=== PATIENT | female | born 1950 | race American Indian/Alaskan Native ===

== ENCOUNTER 2017-05-14 05:38 | Emergency (ER) | payer BC, MEDICARE ==
[2017-05-14 05:39] VITALS: BMI 28.2
[2017-05-14] MEDS ORDERED: Oxycodone/Acetaminophen 5/325 mg Tab PO STA (06:26)
--- NOTE | 2017-05-14 06:32 | C.PDOC ---
Time Seen by Provider: 05/14/17 06:20 Chief Complaint (Nursing): Upper Extremity Problem/Injury Past Medical History Vital Signs: Last Vital Signs Temp 97.7 F 05/14/17 05:47 Pulse 85 05/14/17 05:47 Resp 14 05/14/17 05:47 BP 152/89 H 05/14/17 05:47 Pulse Ox 96 05/14/17 05:47 - Medical History PMH: Anemia, HTN, Hypercholesterolemia, Chronic Kidney Disease, Seizures ( TRIGGERED BY LOSS OF BLOOD PER PT.) Denies: Depression Surgical History: Denies: Pacemaker - [facility] Procedures PERFORMANCE OF URINARY FILTRATION, SINGLE (05/14/16) Family History: States: Unknown Family Hx - Social History Hx Tobacco Use: No Hx Alcohol Use: No Hx Substance Use: No - Immunization History Hx Tetanus Toxoid Vaccination: Yes Hx Influenza Vaccination: No Hx Pneumococcal Vaccination: No ED Course And Treatment O2 Sat by Pulse Oximetry: 96
[2017-05-14] MEDS ORDERED: Oxycodone/Acetaminophen 5/325 mg Tab ONE (06:34)
--- NOTE | 2017-05-14 06:35 | C.PDOC ---
History Of Present Illness 66 year old female presents to the ED with complaints of left arm pain beginning yesterday morning at approximately 9:30am following dialysis. She states she thought the pain was due to the band around her fistula being too tight but the pain continues despite removing bandage. Patient denies any direct injury, fever, or taking any medications for the pain. Time Seen by Provider: 05/14/17 06:20 Chief Complaint (Nursing): Upper Extremity Problem/Injury History Per: Patient History/Exam Limitations: no limitations Onset/Duration Of Symptoms: Days (since yesterday 9:30am ) Current Symptoms Are (Timing): Still Present Quality: "Pain" Recent travel outside of the [place]: No Past Medical History Reviewed: Historical Data, Nursing Documentation, Vital Signs Vital Signs: Last Vital Signs Temp 97.7 F 05/14/17 05:47 Pulse 85 05/14/17 05:47 Resp 14 05/14/17 05:47 BP 152/89 H 05/14/17 05:47 Pulse Ox 96 05/14/17 07:17 - Medical History PMH: Anemia, HTN, Hypercholesterolemia, Chronic Kidney Disease, Seizures ( TRIGGERED BY LOSS OF BLOOD PER PT.) Surgical History: Denies: Pacemaker - [facility] Procedures PERFORMANCE OF URINARY FILTRATION, SINGLE (05/14/16) Family History: States: Unknown Family Hx - Social History Hx Tobacco Use: No Hx Alcohol Use: No Hx Substance Use: No - Immunization History Hx Tetanus Toxoid Vaccination: Yes Hx Influenza Vaccination: No Hx Pneumococcal Vaccination: No Review Of Systems Constitutional: Negative for: Fever, Chills, Sweats Cardiovascular: Negative for: Chest Pain, Palpitations Respiratory: Negative for: Cough, Shortness of Breath Gastrointestinal: Negative for: Nausea, Vomiting, Abdominal Pain, Diarrhea Musculoskeletal: Positive for: Shoulder Pain (left shoulder pain ), Arm Pain ( left arm pain) Neurological: Negative for: Headache Physical Exam - Physical Exam Skin: Other Additional Physical Exam Comments: Constitutional: uncomfortable. WDWN. Head: Normocephalic. Atraumatic. Neck: Supple. Cardiovascular: Regular rate and rhythm. Chest: No tenderness. Back: No CVA and no mid-line tenderness. Musculoskeletal: Decreased ROM to the left shoulder. Tenderness to the left lateral arm in bicepital region and superior shoulder area. . Skin: No rash. Fistula present to the left medial aspect of the arm with positive thrill. Neurologic: Alert, no focal deficit. ED Course And Treatment O2 Sat by Pulse Oximetry: 96 (room air) Disposition - Disposition Disposition Time: 07:18 Condition: STABLE - Clinical Impression Clinical Impression: Left shoulder pain - Scribe Statement The provider has reviewed the documentation as recorded by the Scribe Rachel Damon All medical record entries made by the Scribe were at my direction and personally dictated by me. I have reviewed the chart and agree that the record accurately reflects my personal performance of the history, physical exam, medical decision making, and the department course for this patient. I have also personally directed, reviewed, and agree with the discharge instructions and disposition. Physician Patient Turnover Patient Signed Over To: Baylee Banks Handoff Comments: follow up shoulder xray and doppler. re-eval pt and dispo accordingly
[2017-05-14 07:32] VITALS: RESP 18
--- NOTE | 2017-05-14 08:23 | RAD ---
PROCEDURE: Radiographs of the Left Shoulder HISTORY: pain no hx trauma COMPARISON: No prior. FINDINGS: BONES: Hypertrophic changes present No fracture. No dislocation JOINTS: . Glenohumeral and acromioclavicular joints moderate osteoarthritis. SOFT TISSUES: Normal. OTHER FINDINGS: None. IMPRESSION: Moderate arthrosis is above
[2017-05-14 09:24] VITALS: BP 135/78; PULSE 64; TEMP 97.5; O2SAT 97
--- NOTE | 2017-05-15 20:44 | VASCLAB ---
PROCEDURE: Left Upper Extremity Venous Duplex Exam HISTORY: left fistula, pain x 1 day PRIORS: None. TECHNIQUE: Left upper extremity, internal jugular, subclavian, axillary, brachial, ulnar, radial, basilic and upper cephalic veins were evaluated. Flow was assessed with color Doppler, compressibility, assessment of phasic flow and augmentation response. Report prepared by THERESA Aguilera, RVT FINDINGS: LEFT: 1. Internal Jugular: 1.1. Compressibility - Fully compressible: Thrombus - None : Flow - Phasic: Augmentation -Normal: Reflux - None. 2. Subclavian: 2.1. Compressibility - Fully compressible: Thrombus - None : Flow - Phasic: Augmentation -Normal: Reflux - None. 3. Axillary: 3.1. Compressibility - Fully compressible: Thrombus - None : Flow - Phasic: Augmentation -Normal: Reflux - None. 4. Brachial: 4.1. Compressibility - Fully compressible: Thrombus - None: Flow - Phasic: Augmentation -Normal: Reflux - None. 5. Ulnar: 5.1. Compressibility - Fully compressible: Thrombus - None: Not optimally obtained. 6. Radial: 6.1. Compressibility - Fully compressible: Thrombus - None: Not optimally obtained. 7. Cephalic: 7.1. Compressibility - Fully compressible: Thrombus - None: Flow - Phasic: Augmentation -Normal: Reflux - None. 8. Basilic: 8.1. Compressibility - Fully compressible: Thrombus - None: Flow - Phasic: Augmentation -Normal: Reflux - None. OTHER FINDINGS: Left: A functional left brachial basilic fistula noted. Multiple cystic structures in the thyroid gland. IMPRESSION: Left: No evidence of vein thrombosis of the left upper extremity with excellent venous flow. Normal valve function noted of the left side. Normal venous flow noted in the right internal jugular and right subclavian veins. Cystic structures within the thyroid gland. Dedicated ultrasound imaging recommended.
== END 2017-05-14 09:24 | disposition home or self-care (01) ==
LOC: C.ER 05:38
DX: M25.512 Pain in left shoulder (principal)